=== PATIENT | female | born 1950 | race Asian ===

== ENCOUNTER → 2017-07-28 | Day surgery (SDC) | payer OTHER ==
--- NOTE | 2017-07-29 14:04 | PATH ---
Surgical Pathology Report Patient Name: LUBA NEAL [facility]. Rec. #: [id number] /Age/Gender: 1950 (Age: 66) / F Account: [id number] Location: [facility] Taken: 07/28/2017 Received: 07/28/2017 Reported: 07/29/2017 Physicians: Ernie Felton M.D. Specimen(s) Received RIGHT BREAST CORE BIOPSY AT 11:00 Clinical History Nonpalpable lesion, 0.6 cm, with calcifications, ? 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 Electronically Signed Ligia Pendleton M.D. Gross Description Received in formalin labeled "right 11:00," is a 0.7 x 0.5 x 0.2 cm aggregate of bean-yellow fragments of fibroadipose tissue. The formalin is filtered and the specimen is entirely submitted in one cassette. Time to formalin fixation: Less than one minute Total formalin fixation time: Approximately 9 hours. 07/28/2017 saudi07/28/2017
== END | disposition home or self-care (01) ==
LOC: JRADUS-SUR 07:59
PROVIDERS: ATTEND Surgery
PROC: 0HBT3ZX Excision of Right Breast, Percutaneous Approach, Diagnostic (ICD-10-PCS; principal; 2017-07-28)
DX: D24.1 Benign neoplasm of right breast (principal)
CPT/HCPCS: 19083; 87899; 88305-TC